=== PATIENT | male | born 1960 | race Caucasian/White ===

== ENCOUNTER 2018-05-16 21:18 | Inpatient (IN) | payer OTHER ==
[~2018-05-16] VITALS: Ht 170.2 cm; Wt 88.0 kg
[2018-05-16 22:20] LABS: BASOPHIL % 0.6 % (0-2); PLATELET COUNT 230 x10^3mcL (130-400); RED CELL DISTRIBUTION WIDTH 13.9 % (11.5-14.5)
[2018-05-16 22:38] LABS: CALCIUM 8.8 mg/dL (8.5-10.1); CARBON DIOXIDE 27.3 mmol/L (21-32); CREATININE SERUM 1.4 mg/dL (0.7-1.3); POTASSIUM SERUM 4.4 mmol/L (3.5-5.1)
[2018-05-16 22:43] LABS: ALBUMIN 3.5 g/dL (3.4-5.0); BILIRUBIN TOTAL 0.56 mg/dL (0.20-1.00); TOTAL PROTEIN, SERUM 7.2 g/dL (6.4-8.2)
[2018-05-17] MEDS ORDERED: ASPIRIN ADULT L81 M5 PO (00:30)
[2018-05-17] MEDS ORDERED: METFORMIN HYDR500 M1 PO (00:31)
[2018-05-17] MEDS ORDERED: LISINOPRIL10 MG PO (00:33)
[2018-05-17] MEDS ORDERED: VASOTEC10 MG (00:33)
[2018-05-17] MEDS ORDERED: INVOKANA300 MG PO (00:34)
[2018-05-17 01:35] VITALS: BP 101/58
[2018-05-17 02:47] LABS: T3 TOTAL 1.39 ng/mL
[2018-05-17 02:52] LABS: MAGNESIUM 1.7 mg/dL (1.8-2.4); PHOSPHOROUS 3.5 mg/dL (2.5-4.9)
[2018-05-17 02:55] LABS: FREE T4 1.01 ng/dL (0.76-1.46); FREE THYROXINE INDEX 3.4 ug/dL (1.4-4.5); T4(THYROXINE) 10.2 ug/dL (4.7-13.3)
[2018-05-17 03:41] LABS: microscopic required? NO
[2018-05-17 03:54] LABS: UA SPECIFIC GRAVITY >=1.030 (1.005-1.035); urine erythrocyte NEGATIVE (NEGATIVE)
[2018-05-17 05:20] VITALS: BP 103/62
[2018-05-17 09:55] VITALS: BP 102/63
[2018-05-17 13:38] VITALS: BP 105/65
[2018-05-17 17:07] VITALS: BP 105/58
[2018-05-17 21:11] VITALS: BP 98/62
[2018-05-18 06:33] LABS: BASOPHIL % 0.4 % (0-2); PLATELET COUNT 216 x10^3mcL (130-400); RED CELL DISTRIBUTION WIDTH 13.9 % (11.5-14.5)
[2018-05-18 06:42] VITALS: BP 95/61
[2018-05-18 06:44] LABS: CALCIUM 8.5 mg/dL (8.5-10.1); CARBON DIOXIDE 26.6 mmol/L (21-32); CHLORIDE SERUM 104 mmol/L (98-107); CREATININE SERUM 0.7 mg/dL (0.7-1.3); GFR1 > 60 mL/min; GLUCOSE SERUM 151 mg/dL (74-106); MAGNESIUM 1.6 mg/dL (1.8-2.4); PHOSPHOROUS 3.1 mg/dL (2.5-4.9); POTASSIUM SERUM 4.1 mmol/L (3.5-5.1); SODIUM SERUM 137 mmol/L (136-145)
[2018-05-18 09:12] VITALS: BP 105/63
[2018-05-18 11:42] VITALS: BP 98/54
[2018-05-18 16:04] VITALS: BP 95/55
[2018-05-18 21:08] VITALS: BP 109/64
[2018-05-19 05:57] VITALS: BP 102/65
[2018-05-19 06:54] LABS: BASOPHIL % 0.4 % (0-2); PLATELET COUNT 219 x10^3mcL (130-400)
[2018-05-19 07:23] LABS: CALCIUM 8.7 mg/dL (8.5-10.1); CARBON DIOXIDE 28.2 mmol/L (21-32); CHLORIDE SERUM 102 mmol/L (98-107); CREATININE SERUM 0.8 mg/dL (0.7-1.3); GFR1 > 60 mL/min; GLUCOSE SERUM 112 mg/dL (74-106); MAGNESIUM 1.6 mg/dL (1.8-2.4); PHOSPHOROUS 3.2 mg/dL (2.5-4.9); POTASSIUM SERUM 3.8 mmol/L (3.5-5.1); SODIUM SERUM 136 mmol/L (136-145)
[2018-05-19 09:37] VITALS: BP 109/69
[2018-05-19] MEDS ORDERED: LOV80I SC (10:17)
[2018-05-19] MEDS ORDERED: COUMADIN5 MG PO (10:24)
[2018-05-19 13:52] VITALS: BP 107/60
[2018-05-19 14:04] VITALS: BP 107/60
== END 2018-05-19 18:28 | disposition home or self-care (01) | DRG 203 ==
LOC: ED 21:18 → DU 22:35
PROVIDERS: Emergency Medicine; Family Medicine
DX: M94.0 Chondrocostal junction syndrome [Tietze] (principal); N17.0 Acute kidney failure with tubular necrosis; K21.9 Gastro-esophageal reflux disease without esophagitis; I82.431 Acute embolism and thrombosis of right popliteal vein; E11.65 Type 2 diabetes mellitus with hyperglycemia; I10 Essential (primary) hypertension; I25.2 Old myocardial infarction; Z87.891 Personal history of nicotine dependence; Z88.8 Allergy status to other drugs, medicaments and biological substances; Z79.82 Long term (current) use of aspirin; Z79.899 Other long term (current) drug therapy; E83.42 Hypomagnesemia
CPT/HCPCS: 82962; 83880; 84439; 85378; J1644; J1650; J2270; J7030; Q0092